=== PATIENT | male | born 1995 | race Caucasian/White ===

== ENCOUNTER → 2021-10-18 | Outpatient (REF) | payer OTHER ==
[2021-10-18 12:26] LABS: BLOOD UREA NITROGEN 12 MG/DL (7-18); CALCIUM LEVEL 8.5 MG/DL (8.5-10.1); CARBON DIOXIDE LEVEL 30 MEQ/L (21-32); CHLORIDE LEVEL 105 MEQ/L (98-107); CHOLESTEROL LEVEL 213 MG/DL (<200); CHOLESTEROL RISK RATIO 6.656 (<5); CREATININE FOR GFR 0.78 MG/DL (0.70-1.30); FREE T4 1.27 NG/DL (0.76-1.46); GLOMERULAR FILTRATION RATE > 60.0 (>60); GLUCOSE, FASTING 89 MG/DL (70-100); HDL CHOLESTEROL 32 MG/DL (>40); LDL CHOLESTEROL 157 MG/DL (<100); NON-HDL-C 181 MG/DL; POTASSIUM SERUM 4.4 MEQ/L (3.5-5.1); SODIUM LEVEL 140 MEQ/L (136-145); TRIGLYCERIDES LEVEL 118 MG/DL (<150)
== END ==
LOC: M SFHCCLAY 07:32
PROVIDERS: ATTEND Family Medicine
DX: Z00.00 Encounter for general adult medical examination without abnormal findings (principal); E66.3 Overweight; Z83.3 Family history of diabetes mellitus

== ENCOUNTER → 2021-11-02 | Outpatient (REF) | payer OTHER ==
[2021-11-02 11:31] LABS: SEMEN APPEARANCE OPAQUE (OPAQUE); SEMEN VISCOSITY LIQUID (LIQUID); SEMEN VOLUME 2.8 ML (2.0-5.0); SEMEN WBC <=1 M/ml (<=1 M/ml)
== END ==
LOC: M LAB 11:26
PROVIDERS: ATTEND Family Medicine
DX: Z31.69 Encounter for other general counseling and advice on procreation (principal)

== ENCOUNTER → 2021-12-05 | Outpatient (REF) | payer OTHER ==
[2021-12-05 18:46] LABS: APPEARANCE, URINE CLEAR (CLEAR); BACTERIA, URINE AUTO NEGATIVE (NEGATIVE); BILIRUBIN, URINE AUTO NEGATIVE (NEGATIVE); BLOOD, URINE BLOOD NEGATIVE (NEGATIVE); COLOR, URINE COLORLESS (YELLOW); GLUCOSE, URINE (UA) AUTO NEGATIVE (NEGATIVE); KETONE, URINE AUTO NEGATIVE (NEGATIVE); LEUKOCYTE ESTERASE, URINE AUTO NEGATIVE (NEGATIVE); NITRITE, URINE AUTO NEGATIVE (NEGATIVE); PROTEIN, URINE AUTO NEGATIVE (NEGATIVE); RBC, URINE AUTO 0 /HPF (0-3); SPECIFIC GRAVITY URINE AUTO 1.003 (1.002-1.035); SQUAMOUS EPITHELIAL CELL UR AU 0 /HPF (0-6); UROBILINOGEN, URINE AUTO 0.2 mg/dL (0.0-2.0); WBC, URINE AUTO 0 /HPF (0-3)
== END ==
LOC: M SMT 16:58
PROVIDERS: ATTEND Urology
DX: N46.01 Organic azoospermia (principal)

== ENCOUNTER → 2021-12-13 | Outpatient (REF) | payer OTHER ==
[2021-12-13 12:14] LABS: FOLLICLE STIMULATING HORMONE 74.9 mIU/mL (1.4-18.1); LUTEINIZING HORMONE 33.5 mIU/mL (1.5-9.3); PROLACTIN 31.3 NG/ML (2.1-17.7)
[2021-12-16 18:10] LABS: ESTROGENS TOTAL 47 pg/mL (56-213); SEX HORMONE BINDING GLOBULIN 22.7 nmol/L (16.5-55.9); TESTOSTERONE FREE (DIRECT) 4.9 pg/mL (9.3-26.5)
== END ==
LOC: M SFHCCLAY 09:43
PROVIDERS: ATTEND Urology
DX: N46.01 Organic azoospermia (principal); N50.89 Other specified disorders of the male genital organs

== ENCOUNTER → 2021-12-16 | Outpatient (CLI) | payer OTHER | LOC: M WHC 12:25 | PROVIDERS: ATTEND Urology | DX: N46.01 Organic azoospermia (principal) ==